=== PATIENT | female | born 1970 | race Caucasian/White ===

== ENCOUNTER → 2021-07-08 | Outpatient (CLI) | payer OTHER ==
--- NOTE | 2021-07-08 16:21 | KCIC ---
Exam Date: 07/08/2021 1:20 PM MRI RIGHT LOWER EXTREMITY JOINT WITHOUT Indication: Reason: Right knee pain. / Spl. Instructions: Old injury to knee / History: Tenderness to patella during palpitation,crepitus, hurts to bear wt.. TECHNIQUE: Routine multiplanar MR imaging of the knee was performed without contrast. FINDINGS: There is a posterior horn root tear of the medial meniscus. The lateral meniscus is intact and within normal limits for age. The anterior cruciate ligament, posterior cruciate ligament, medial collateral ligament, and lateral collateral ligament complex are intact. Patellofemoral extensor mechanism and popliteus tendon are w ithin normal limits. Full-thickness chondral loss is identified along the patella apex with mild subchondral degenerative marrow signal. Focal partial thickness chondral defects are seen in the lateral compartment. There is diffuse chondral thinning in the medial compartment with focal full-thickness chondral fissuring a nd mild subchondral degenerative marrow signal. Small tricompartment osteophytes are noted. Bone marrow demonstrates benign signal on all sequences. No acute fracture is seen. Physiologic joint fluid is present. There is a small to moderate popliteal cyst. IMPRESSION: Posterior horn root tear of the medial meniscus. Full-thickness chondral loss identified in the patellofemoral compartment. Full-thickness chondral f issuring noted in the medial compartment. Small to moderate popliteal cyst. Electronically signed by: Gurpreet Rondon MD (07/08/2021 4:18 PM) [id number]
== END ==
LOC: KCIC MRI 12:40
DX: S83.241A Other tear of medial meniscus, current injury, right knee, initial encounter (principal); M25.761 Osteophyte, right knee; M25.561 Pain in right knee; X58.XXXA Exposure to other specified factors, initial encounter; Y93.89 Activity, other specified; Y92.89 Other specified places as the place of occurrence of the external cause; Y99.8 Other external cause status; M71.21 Synovial cyst of popliteal space [Baker], right knee
CPT/HCPCS: 73721